=== PATIENT | female | born 1970 | race Caucasian/White ===

== ENCOUNTER 2017-10-21 18:51 | Emergency (ER) | payer BC ==
[2017-10-21 18:59] VITALS: TEMP 97.9
[2017-10-21] MEDS ORDERED: SODIUM CHLORIDE 0.9% 1,000 ML IV STA (19:59)
[2017-10-21] MEDS ORDERED: HYDROmorphone 0.5 MG/0.5 ML SYRINGE IVP STA (19:59)
[2017-10-21] MEDS ORDERED: KETOROLAC 30 MG/ML 1 ML VIAL IVP STA (19:59)
[2017-10-21] MEDS ORDERED: ONDANSETRON 4 MG/2 ML VIAL IVP STA (19:59)
[2017-10-21 20:49] LABS: Basophils # (A) 0.1 k/uL (0-0.2); Basophils % (A) 1 %; Eosinophils # (A) 0.3 k/uL (0-0.7); Eosinophils % (A) 2 %; HCT 43.7 % (34.0-46.0); HGB 14.3 gm/dL (11.4-16.0); Lymphocytes # (A) 2.4 k/uL (1.0-4.8); Lymphocytes % (A) 22 %; MCH 29.1 pg (25.0-35.0); MCHC 32.7 g/dL (31.0-37.0); Mean Platelet Volume 6.7; Monocytes # (A) 0.5 k/uL (0-1.0); Monocytes % (A) 5 %; Neutrophils # (A) 7.8 k/uL (1.3-7.7); Neutrophils % (A) 69 %; Platelet Count 402 k/uL (150-450); RDW 12.9 % (11.5-15.5); WBC 11.3 k/uL (3.8-10.6)
[2017-10-21 20:51] LABS: Appearance,Urine Clear (Clear); Bilirubin,Urine Negative (Negative); Blood,Urine Negative (Negative); Color,Urine Colorless; Glucose,Urine (UA) Negative (Negative); Ketones,Urine Negative (Negative); Leukocyte Esterase,Urine Negative (Negative); Nitrite,Urine Negative (Negative); PH, Urine 6.5 (5.0-8.0); Protein,Urine Negative (Negative); Specific Gravity,Urine 1.004 (1.001-1.035); Urobilinogen,Urine <2.0 mg/dL (<2.0)
[2017-10-21 21:00] LABS: ALT 57 U/L (9-52); AST 25 U/L (14-36); Albumin 4.6 g/dL (3.5-5.0); Alkaline Phosphatase 62 U/L (38-126); Amylase 57 U/L (30-110); Anion Gap 13 mmol/L; Blood Urea Nitrogen 24 mg/dL (7-17); Calcium 10.1 mg/dL (8.4-10.2); Carbon Dioxide 26 mmol/L (22-30); Chloride 100 mmol/L (98-107); Glucose 104 mg/dL (74-99); Lipase 70 U/L (23-300); Sodium 139 mmol/L (137-145); Total Bilirubin 0.5 mg/dL (0.2-1.3); Total Protein 8.6 g/dL (6.3-8.2)
--- NOTE | 2017-10-21 21:06 | ED ---
Abdominal Pain HPI - General Chief Complaint: Abdominal Pain Stated Complaint: Abdominal pain Time Seen by Provider: 10/21/17 19:44 Source: patient, RN notes reviewed, old records reviewed Mode of arrival: ambulatory Limitations: no limitations - History of Present Illness Initial Comments: 47-year-old female with a 2 month history of intermittent right upper quadrant pain. She reports his been acutely worse over the past 3 days. She reports is generally sore. She denies any fever or chills. She states she's had a couple episodes of vomiting last week. Reports some diarrhea as well. Denies any other symptoms. Patient reports the pain is worse after eating. Specifically worse after eating a greasy meal. She reports family history of gallbladder disease. Surgical history includes appendectomy.Patient denies any recent fever , chills, shortness of breath, chest pain, back pain, abdominal pain, nausea vomiting, numbness or tingling, dysuria or hematuria, constipation or diarrhea, headaches or visual changes, or any other current symptoms - Related Data Home Medications Medication Instructions Recorded Confirmed Hydrochlorothiazide [Hydrodiuril] 50 mg PO DAILY 10/21/17 10/21/17 Levothyroxine Sodium [Synthroid] 88 mcg PO DAILY 10/21/17 10/21/17 Lisinopril [Zestril] 40 mg PO DAILY 10/21/17 10/21/17 Previous Rx's Medication Instructions Recorded Famotidine [Pepcid] 20 mg PO HS #20 tablet 10/21/17 HYDROcodone/APAP 5-325MG [[place] 1 tab PO Q6HR PRN #12 tab 10/21/17 5-325] Ondansetron Odt [Zofran Odt] 4 mg PO Q8HR PRN #12 tab 10/21/17 Allergies Allergy/AdvReac Type Severity Reaction Status Date / Time Penicillins Allergy Rash/Hives Verified 10/21/17 20:05 Sulfa (Sulfonamide Allergy Rash/Hives Verified 10/21/17 20:05 Antibiotics) Review of Systems ROS Statement: Those systems with pertinent positive or pertinent negative responses have been documented in the HPI. ROS Other: All systems not noted in ROS Statement are negative. Past Medical History Past Medical History: Hypertension, Thyroid Disorder History of Any Multi-Drug Resistant Organisms: None Reported Past Surgical History: Section, Hysterectomy Past Psychological History: No Psychological Hx Reported Smoking Status: Never smoker Past Alcohol Use History: None Reported Past Drug Use History: None Reported General Exam - General Exam Comments Initial Comments: 47-year-old female. No distress. Limitations: no limitations General appearance: alert, in no apparent distress Head exam: Present: atraumatic, normocephalic, normal inspection Eye exam: Present: normal appearance, PERRL, EOMI. Absent: scleral icterus, conjunctival injection, periorbital swelling ENT exam: Present: normal exam, mucous membranes moist Neck exam: Present: normal inspection. Absent: tenderness, meningismus, lymphadenopathy Respiratory exam: Present: normal lung sounds bilaterally. Absent: respiratory distress, wheezes, rales, rhonchi, stridor Cardiovascular Exam: Present: regular rate, normal rhythm, normal heart sounds. Absent: systolic murmur, diastolic murmur, rubs, gallop, clicks GI/Abdominal exam: Present: soft, tenderness (Final right upper quadrant tenderness. No rebound or guarding.), normal bowel sounds. Absent: distended, guarding, rebound, rigid Extremities exam: Present: normal inspection, full ROM, normal capillary refill. Absent: tenderness, pedal edema, joint swelling, calf tenderness Back exam: Present: normal inspection Neurological exam: Present: alert, oriented X3, CN II-XII intact Psychiatric exam: Present: normal affect, normal mood Skin exam: Present: warm, dry, intact, normal color. Absent: rash Course Vital Signs 10/21/17 10/21/17 18:56 22:21 Temperature 97.9 F 97.9 F Pulse Rate 118 H 100 Respiratory 16 18 Rate Blood Pressure 125/67 112/65 O2 Sat by Pulse 99 99 Oximetry Medical Decision Making - Medical Decision Making 47-year-old female with a 2 month history of intermittent right upper quadrant pain. She reports his been acutely worse over the past 3 days. She reports is generally sore. She denies any fever or chills. She states she's had a couple episodes of vomiting last week. Patient does have some tenderness to the right upper quadrant. No rebound tenderness or guarding. Patient was given IV fluids labwork obtained. Mildly elevated reports of, 1.3. G think this could be reactive to do vomiting. Liver enzymes are within normal rubs. Urinalysis shows no infection. I did do a right upper quadrant ultrasound. There is no evidence of cholelithiasis or choledocholithiasis. Patient informed of these. I discussed that other etiologies for pain including peptic ulcer or biliary colic. Discussed following up with a surgeon for further testing including a HIDA scan. Discussed watching her diet, and having clear liquids for the next few days. I discussed with the patient on Pepcid for possible peptic ulcer as well as monitor her diet to help her biliary colic. Patient be discharged with a short course of pain medication and referral to surgeon. - Lab Data Result diagrams: 10/21/17 20:36 10/21/17 20:36 Lab Results 10/21/17 10/21/17 10/21/17 Range/Units 20:36 20:36 20:36 WBC 11.3 H (3.8-10.6) k/uL RBC 4.90 (3.80-5.40) m/uL Hgb 14.3 (11.4-16.0) gm/dL Hct 43.7 (34.0-46.0) % MCV 89.0 (80.0-100.0) fL MCH 29.1 (25.0-35.0) pg MCHC 32.7 (31.0-37.0) g/dL RDW 12.9 (11.5-15.5) % Plt Count 402 (150-450) k/uL Neutrophils % 69 % Lymphocytes % 22 % Monocytes % 5 % Eosinophils % 2 % Basophils % 1 % Neutrophils # 7.8 H (1.3-7.7) k/uL Lymphocytes # 2.4 (1.0-4.8) k/uL Monocytes # 0.5 (0-1.0) k/uL Eosinophils # 0.3 (0-0.7) k/uL Basophils # 0.1 (0-0.2) k/uL Sodium 139 (137-145) mmol/L Potassium 4.0 (3.5-5.1) mmol/L Chloride 100 (98-107) mmol/L Carbon Dioxide 26 (22-30) mmol/L Anion Gap 13 mmol/L BUN 24 H (7-17) mg/dL Creatinine 0.80 (0.52-1.04) mg/dL Est GFR (MDRD) Af Amer >60 (>60 ml/min/1.73 sqM) Est GFR (MDRD) Non-Af >60 (>60 ml/min/1.73 sqM) Glucose 104 H (74-99) mg/dL Plasma Lactic Acid Nick 1.0 (0.7-2.0) mmol/L Calcium 10.1 (8.4-10.2) mg/dL Total Bilirubin 0.5 (0.2-1.3) mg/dL AST 25 (14-36) U/L ALT 57 H (9-52) U/L Alkaline Phosphatase 62 (38-126) U/L Total Protein 8.6 H (6.3-8.2) g/dL Albumin 4.6 (3.5-5.0) g/dL Amylase 57 (30-110) U/L Lipase 70 (23-300) U/L Urine Color Urine Appearance (Clear) Urine pH (5.0-8.0) Ur Specific Phillips (1.001-1.035) Urine Protein (Negative) Urine Glucose (UA) (Negative) Urine Ketones (Negative) Urine Blood (Negative) Urine Nitrite (Negative) Urine Bilirubin (Negative) Urine Urobilinogen (<2.0) mg/dL Ur Leukocyte Esterase (Negative) 10/21/17 Range/Units 20:36 WBC (3.8-10.6) k/uL RBC (3.80-5.40) m/uL Hgb (11.4-16.0) gm/dL Hct (34.0-46.0) % MCV (80.0-100.0) fL MCH (25.0-35.0) pg MCHC (31.0-37.0) g/dL RDW (11.5-15.5) % Plt Count (150-450) k/uL Neutrophils % % Lymphocytes % % Monocytes % % Eosinophils % % Basophils % % Neutrophils # (1.3-7.7) k/uL Lymphocytes # (1.0-4.8) k/uL Monocytes # (0-1.0) k/uL Eosinophils # (0-0.7) k/uL Basophils # (0-0.2) k/uL Sodium (137-145) mmol/L Potassium (3.5-5.1) mmol/L Chloride (98-107) mmol/L Carbon Dioxide (22-30) mmol/L Anion Gap mmol/L BUN (7-17) mg/dL Creatinine (0.52-1.04) mg/dL Est GFR (MDRD) Af Amer (>60 ml/min/1.73 sqM) Est GFR (MDRD) Non-Af (>60 ml/min/1.73 sqM) Glucose (74-99) mg/dL Plasma Lactic Acid Nick (0.7-2.0) mmol/L Calcium (8.4-10.2) mg/dL Total Bilirubin (0.2-1.3) mg/dL AST (14-36) U/L ALT (9-52) U/L Alkaline Phosphatase (38-126) U/L Total Protein (6.3-8.2) g/dL Albumin (3.5-5.0) g/dL Amylase (30-110) U/L Lipase (23-300) U/L Urine Color Colorless Urine Appearance Clear (Clear) Urine pH 6.5 (5.0-8.0) Ur Specific [place] 1.004 (1.001-1.035) Urine Protein Negative (Negative) Urine Glucose (UA) Negative (Negative) Urine Ketones Negative (Negative) Urine Blood Negative (Negative) Urine Nitrite Negative (Negative) Urine Bilirubin Negative (Negative) Urine Urobilinogen <2.0 (<2.0) mg/dL Ur Leukocyte Esterase Negative (Negative) - Radiology Data Radiology results: report reviewed Patient's gallbladder is negative right upper quadrant abdominal sonogram. No gallstones or dilated ducts. Disposition Clinical Impression: RUQ pain Disposition: HOME SELF-CARE Condition: Good Instructions: Biliary Colic (ED), Abdominal Pain (ED) Additional Instructions: Patient denies follow-up with on-call surgeon. Return to the emergency department if any alarming signs or symptoms occur. Prescriptions: Famotidine [Pepcid] 20 mg PO HS #20 tablet HYDROcodone/APAP 5-325MG [[place] 5-325] 1 tab PO Q6HR PRN #12 tab PRN Reason: Pain Ondansetron Odt [Zofran Odt] 4 mg PO Q8HR PRN #12 tab PRN Reason: Nausea Referrals: Audrey Boykin MD [Primary Care Provider] - 1-2 days James Perez MD [Medical Doctor] - 1-2 days Time of Disposition: 22:06
--- NOTE | 2017-10-21 21:53 | US ---
EXAMINATION TYPE: US gallbladder DATE OF EXAM: 10/21/2017 COMPARISON: NONE CLINICAL HISTORY: Pain. RUQ pain and nausea exam limitations due to body habitus. EXAM MEASUREMENTS: Liver Length: 19.4 cm Gallbladder Wall: 0.29 cm CBD: 0.58 cm Right Kidney: 9.9 x 4.3 x 4.9 cm Pancreas: Tail obscured by overlying bowel gas Liver: Increased attenuation, decreased visualization of vessels suggestive of fatty infiltrate Gallbladder: No stones seen Evidence for sonographic Garrido's sign: No CBD: wnl Right Kidney: No hydronephrosis or masses seen IMPRESSION: Negative right upper quadrant abdominal sonogram. No gallstones or dilated ducts.
[2017-10-21 22:26] VITALS: BP 112/65; PULSE 100; RESP 18
== END 2017-10-21 22:22 | disposition home or self-care (01) ==
LOC: EC 18:51
DX: R10.11 Right upper quadrant pain (principal); R11.10 Vomiting, unspecified; R19.7 Diarrhea, unspecified; I10 Essential (primary) hypertension; E07.9 Disorder of thyroid, unspecified; Z90.49 Acquired absence of other specified parts of digestive tract; Z79.899 Other long term (current) drug therapy
CPT/HCPCS: 36415; 80053; 82150; 83605; 83690; 85025; 81003; 87040; 76705; 99285; 96374; 96375 ×2; 96361; J2405; J1885; J1170

== ENCOUNTER → 2017-11-05 | Outpatient (CLI) | payer BC ==
--- NOTE | 2017-11-05 09:32 | NM ---
EXAMINATION TYPE: NM hepatobiliary w EF DATE OF EXAM: 11/05/2017 COMPARISON: Ultrasound of the gallbladder dated 10/21/2017 HISTORY: Right upper quadrant pain TECHNIQUE: After the intravenous administration of 5.2 mCi Tc 99m Mebrofenin hepatobiliary scintigrap hy is performed. Immediate images post injection. FINDINGS: There is satisfactory initial accumulation of tracer by the liver. The gallbladder is visualized wit hin 20 minutes. The small bowel activity is noted within 16 minutes. At one hour 8 ounces of oral e nsure plus is given to mimic CCK and gallbladder ejection fraction is calculated at 69 %, in the norm al range. Therefore there is no scintigraphic evidence of cystic or common bile duct obstruction to suggest acute cholecystitis or gallbladder dyskinesia. IMPRESSION: No scintigraphic evidence of acute cholecystitis, chronic cholecystitis, or biliary dyski nesia.
== END | disposition home or self-care (01) ==
LOC: RADNMMAIN 06:47
PROVIDERS: ATTEND Family Medicine
DX: R10.11 Right upper quadrant pain (principal)
CPT/HCPCS: 78226; A9537

== ENCOUNTER 2017-12-27 11:12 | Day surgery (SDC) | payer BC ==
[2017-12-23 11:02] VITALS: BMI 35.4
[~2017-12-27 11:12] MED LIST: LACTATED RINGERS 1,000 ML IV SCH
[2017-12-27 12:20] VITALS: RESP 16; TEMP 97.9
[2017-12-27] MEDS ORDERED: PROPOFOL 10 MG/ML 20 ML VIAL IV ONE (13:05)
--- NOTE | 2017-12-27 13:45 | P.PCN ---
Date of Procedure: 12/27/17 Procedure(s) Performed: Procedure: 1. Esophagogastroduodenoscopy and biopsy. 2. Total colonoscopy. Preoperative diagnosis: Heartburn and nausea and abdominal pain. Postoperative diagnoses: 1. Small sliding hiatal hernia with no obvious esophagitis or complicated reflux disease. 2. Mild antral gastritis. 3. Colon and terminal ileum within normal limits. Preparation: HalfLytely prep. Sedation: Was provided by anesthesia. Brief clinical history: The patient is a 47-year-old female who is scheduled for this evaluation for the above reasons. The patient had chronic reflux symptoms and had no prior upper endoscopy. She has nausea and abdominal pain but no overt bleeding or anemia. No family history of colon cancer. This would be her first upper and lower endoscopies. Procedure: With the patient on her left lateral decubitus position and after informed consent and adequate sedation, I passed the Olympus-GIF 160 video upper endoscope through the cricopharyngeus down the esophagus. GE junction was around 34 cm from the incisors and there was a small sliding hiatal hernia. The esophagus did not show any evidence of esophagitis or complicated reflux disease. The endoscope was then advanced into the stomach which was insufflated with air and inspected in detail including the retroflex view in the cardia. There was some mottling and erythema in the antrum but no ulcers or erosions. Pyloric channel, duodenal bulb, post bulbar area and descending duodenum appeared within normal limits. With her history, I obtained biopsies from the duodenum, antrum and esophagus then the endoscope was withdrawn and I proceeded with the colonoscopy. The perianal area was inspected and it did not show any fissures or fistulas. There were no masses felt on digital rectal examination. The Olympus CFQ 160L endoscope was then inserted in the rectum in the usual fashion and advanced to the cecum. I intubated the ileocecal valve and examined the terminal ileum. The mucosa appeared healthy. No polyps or tumors were seen or any obvious diverticular disease or other pathology. I retroflexed the endoscope in the rectum before the endoscope was withdrawn. The patient tolerated the procedure well. Plan: The patient was reassured. She has a follow-up appointment in our office next month. She will follow up with you as planned and I recommended repeat colonoscopy in 10 years.
[2017-12-27 14:20] VITALS: BP 110/76; PULSE 90
== END 2017-12-27 14:54 | disposition home or self-care (01) ==
LOC: ORWHC2ENDO 11:12
DX: K21.9 Gastro-esophageal reflux disease without esophagitis (principal); K44.9 Diaphragmatic hernia without obstruction or gangrene; R10.9 Unspecified abdominal pain; E78.5 Hyperlipidemia, unspecified; E07.9 Disorder of thyroid, unspecified; I10 Essential (primary) hypertension; Z79.899 Other long term (current) drug therapy; Z88.0 Allergy status to penicillin; Z88.2 Allergy status to sulfonamides
CPT/HCPCS: 88305; 45378; 43239; J2704

== ENCOUNTER 2019-01-16 13:30 | Emergency (ER) | payer BC, OTHER ==
--- NOTE | 2019-01-16 13:56 | ED ---
SOB HPI - General Chief Complaint: Shortness of Breath Stated Complaint: dizzy, SOB Time Seen by Provider: 01/16/19 13:38 Source: patient, RN notes reviewed Mode of arrival: ambulatory Limitations: no limitations - History of Present Illness Initial Comments: This a 49-year-old female presents emergency Department chief complaint shortness of breath. Patient states that she's had worsening symptoms over the weekend and especially today. She had intermittent shortness of breath until today to been continuous. She does not she's short of breath if she walks on the whole at her work. Patient states that she has some chest heaviness with no chest pain. Patient does admit that she had a lingering cough after influenza a month ago. Patient does see PCP who told her took several weeks to clear up. Patient had no recurrent fever, chills, night sweats. Patient has a history of hypothyroidism, hypertension. Patient denies any new medications. Denies nasal congestion, sore throat. Denies any leg swelling, calf pain or any recent long distance traveling. - Related Data Home Medications Medication Instructions Recorded Confirmed Hydrochlorothiazide [Hydrodiuril] 50 mg PO DAILY 10/21/17 01/16/19 Lisinopril [Zestril] 40 mg PO DAILY 10/21/17 01/16/19 Levothyroxine Sodium [Synthroid] 100 mcg PO DAILY 01/16/19 01/16/19 Previous Rx's Medication Instructions Recorded Azithromycin [Zithromax Z-pack] 0 mg PO DIRECTED #1 pack 01/16/19 Allergies Allergy/AdvReac Type Severity Reaction Status Date / Time Penicillins Allergy Rash/Hives Verified 01/16/19 13:47 Sulfa (Sulfonamide Allergy Rash/Hives Verified 01/16/19 13:47 Antibiotics) Review of Systems ROS Statement: Those systems with pertinent positive or pertinent negative responses have been documented in the HPI. ROS Other: All systems not noted in ROS Statement are negative. Past Medical History Past Medical History: GERD/Reflux, Hypertension, Thyroid Disorder Additional Past Medical History / Comment(s): interstitial cystitis, intermittent abd. pain, gas, bloating, change in bowel habits since History of Any Multi-Drug Resistant Organisms: None Reported Past Surgical History: Section, Hysterectomy Additional Past Surgical History / Comment(s): C/S x4 Past Anesthesia/Blood Transfusion Reactions: Motion Sickness, Postoperative Nausea & Vomiting (PONV) Past Psychological History: No Psychological Hx Reported Smoking Status: Never smoker Past Alcohol Use History: None Reported Past Drug Use History: None Reported - Past Family History Mother Family Medical History: No Reported History General Exam Limitations: no limitations General appearance: alert, in no apparent distress Head exam: Present: atraumatic, normocephalic, normal inspection Eye exam: Present: normal appearance, PERRL, EOMI. Absent: scleral icterus, conjunctival injection, periorbital swelling ENT exam: Present: normal exam, normal oropharynx, mucous membranes moist Neck exam: Present: normal inspection, full ROM. Absent: tenderness, meningismus, lymphadenopathy Respiratory exam: Present: normal lung sounds bilaterally. Absent: respiratory distress, wheezes, rales, rhonchi, stridor Cardiovascular Exam: Present: normal rhythm, tachycardia, normal heart sounds. Absent: systolic murmur, diastolic murmur, rubs, gallop, clicks Back exam: Absent: CVA tenderness (R), CVA tenderness (L) Skin exam: Present: warm, dry, intact, normal color. Absent: rash Course Vital Signs 01/16/19 01/16/19 01/16/19 13:31 14:40 15:00 Temperature 98.7 F Pulse Rate 106 H 104 H Respiratory 18 19 18 Rate Blood Pressure 129/82 111/75 111/75 O2 Sat by Pulse 95 96 Oximetry Medical Decision Making - Medical Decision Making 49-year-old female presented emergency from for any shortness of breath exertional. CT, x-ray, lab work were obtained. Patient has areas concerning lymph node enlargement, possible underlying atypical infection versus sarcoidosis. Patient updated on CT results. Follow-up with on-call pulmonology. Patient we given Rocephin, azithromycin. Return parameters were discussed. - Lab Data Result diagrams: 01/16/19 13:57 01/16/19 13:57 Lab Results 01/16/19 01/16/19 01/16/19 Range/Units 13:57 13:57 13:57 WBC 4.5 (3.8-10.6) k/uL RBC 4.27 (3.80-5.40) m/uL Hgb 12.3 (11.4-16.0) gm/dL Hct 37.1 (34.0-46.0) % MCV 87.0 (80.0-100.0) fL MCH 28.9 (25.0-35.0) pg MCHC 33.2 (31.0-37.0) g/dL RDW 13.4 (11.5-15.5) % Plt Count 267 (150-450) k/uL Neutrophils % 58 % Lymphocytes % 25 % Monocytes % 9 % Eosinophils % 4 % Basophils % 1 % Neutrophils # 2.6 (1.3-7.7) k/uL Lymphocytes # 1.1 (1.0-4.8) k/uL Monocytes # 0.4 (0-1.0) k/uL Eosinophils # 0.2 (0-0.7) k/uL Basophils # 0.0 (0-0.2) k/uL PT 10.1 (9.0-12.0) sec INR 0.9 (<1.2) APTT 25.2 (22.0-30.0) sec D-Dimer 0.60 H (<0.60) mg/L FEU Sodium 137 (137-145) mmol/L Potassium 3.9 (3.5-5.1) mmol/L Chloride 104 (98-107) mmol/L Carbon Dioxide 24 (22-30) mmol/L Anion Gap 9 mmol/L BUN 15 (7-17) mg/dL Creatinine 0.62 (0.52-1.04) mg/dL Est GFR (CKD-EPI)AfAm >90 (>60 ml/min/1.73 sqM) Est GFR (CKD-EPI)NonAf >90 (>60 ml/min/1.73 sqM) Glucose 94 (74-99) mg/dL Calcium 9.5 (8.4-10.2) mg/dL Magnesium 1.7 (1.6-2.3) mg/dL Total Bilirubin 0.4 (0.2-1.3) mg/dL AST 26 (14-36) U/L ALT 49 (9-52) U/L Alkaline Phosphatase 56 (38-126) U/L Troponin I (0.000-0.034) ng/mL NT-Pro-B Natriuret Pep pg/mL Total Protein 7.4 (6.3-8.2) g/dL Albumin 4.1 (3.5-5.0) g/dL 04/15/19 04/15/19 Range/Units 13:57 13:57 WBC (3.8-10.6) k/uL RBC (3.80-5.40) m/uL Hgb (11.4-16.0) gm/dL Hct (34.0-46.0) % MCV (80.0-100.0) fL MCH (25.0-35.0) pg MCHC (31.0-37.0) g/dL RDW (11.5-15.5) % Plt Count (150-450) k/uL Neutrophils % % Lymphocytes % % Monocytes % % Eosinophils % % Basophils % % Neutrophils # (1.3-7.7) k/uL Lymphocytes # (1.0-4.8) k/uL Monocytes # (0-1.0) k/uL Eosinophils # (0-0.7) k/uL Basophils # (0-0.2) k/uL PT (9.0-12.0) sec INR (<1.2) APTT (22.0-30.0) sec D-Dimer (<0.60) mg/L FEU Sodium (137-145) mmol/L Potassium (3.5-5.1) mmol/L Chloride (98-107) mmol/L Carbon Dioxide (22-30) mmol/L Anion Gap mmol/L BUN (7-17) mg/dL Creatinine (0.52-1.04) mg/dL Est GFR (CKD-EPI)AfAm (>60 ml/min/1.73 sqM) Est GFR (CKD-EPI)NonAf (>60 ml/min/1.73 sqM) Glucose (74-99) mg/dL Calcium (8.4-10.2) mg/dL Magnesium (1.6-2.3) mg/dL Total Bilirubin (0.2-1.3) mg/dL AST (14-36) U/L ALT (9-52) U/L Alkaline Phosphatase (38-126) U/L Troponin I <0.012 (0.000-0.034) ng/mL NT-Pro-B Natriuret Pep 109 pg/mL Total Protein (6.3-8.2) g/dL Albumin (3.5-5.0) g/dL - EKG Data EKG Comments: EKG performed at 13:49 sinus tachycardia with a rate of 107 MI 136 QRS 80 QT/QTC 348/464 Disposition Clinical Impression: Atypical pneumonia, Hilar lymphadenopathy Disposition: HOME SELF-CARE Condition: Stable Instructions (If sedation given, give patient instructions): Bacterial Pneumonia (ED) Additional Instructions: Please return to the Emergency Department if symptoms worsen or any other concerns. Prescriptions: Azithromycin [Zithromax Z-pack] 0 mg PO DIRECTED #1 pack Is patient prescribed a controlled substance at d/c from ED?: No Referrals: Raghav Rain Jr, [Primary Care Provider] - 1-2 days Time of Disposition: 15:41
[2019-01-16 14:10] LABS: Basophils % (A) 1 %; Eosinophils # (A) 0.2 k/uL (0-0.7); Eosinophils % (A) 4 %; HCT 37.1 % (34.0-46.0); HGB 12.3 gm/dL (11.4-16.0); Lymphocytes # (A) 1.1 k/uL (1.0-4.8); Lymphocytes % (A) 25 %; MCH 28.9 pg (25.0-35.0); MCHC 33.2 g/dL (31.0-37.0); Mean Platelet Volume 6.8; Monocytes # (A) 0.4 k/uL (0-1.0); Monocytes % (A) 9 %; Neutrophils # (A) 2.6 k/uL (1.3-7.7); Neutrophils % (A) 58 %; Platelet Count 267 k/uL (150-450); RBC 4.27 m/uL (3.80-5.40); RDW 13.4 % (11.5-15.5); WBC 4.5 k/uL (3.8-10.6)
--- NOTE | 2019-01-16 14:11 | XR ---
EXAMINATION TYPE: XR chest 2V DATE OF EXAM: 01/16/2019 COMPARISON: None HISTORY: 49-year-old female cough and difficulty breathing TECHNIQUE: PA and lateral views FINDINGS: Low lung volumes and cardiovascular markings. Peribronchial cuffing is suggested. Heart normal size. Some patchy lower lung densities likely atelectasis. Otherwise, no hung consolidation or pleural eff usion. IMPRESSION: Hypoventilatory changes. There is some interstitial and peribronchial density that could represent br onchitis or asthma. Atypical pneumonias are also possible.
[2019-01-16 14:22] LABS: ALT 49 U/L (9-52); AST 26 U/L (14-36); Albumin 4.1 g/dL (3.5-5.0); Alkaline Phosphatase 56 U/L (38-126); Anion Gap 9 mmol/L; Blood Urea Nitrogen 15 mg/dL (7-17); Calcium 9.5 mg/dL (8.4-10.2); Carbon Dioxide 24 mmol/L (22-30); Chloride 104 mmol/L (98-107); Glucose 94 mg/dL (74-99); Magnesium 1.7 mg/dL (1.6-2.3); Potassium 3.9 mmol/L (3.5-5.1); Sodium 137 mmol/L (137-145); Total Bilirubin 0.4 mg/dL (0.2-1.3); Total Protein 7.4 g/dL (6.3-8.2)
[2019-01-16 14:23] LABS: INR 0.9 (<1.2); Partial Thromboplastin Time 25.2 sec (22.0-30.0); Prothrombin Time 10.1 sec (9.0-12.0)
[2019-01-16 14:51] LABS: D-Dimer 0.6 mg/L FEU (<0.60)
--- NOTE | 2019-01-16 15:21 | CT ---
EXAMINATION TYPE: CT chest angio for PE DATE OF EXAM: 01/16/2019 COMPARISON: Chest x-ray earlier today. HISTORY: Chest pressure and cough CT DLP: 581.7 mGycm. Automated Exposure Control for Dose Reduction was Utilized. CONTRAST: CTA scan of the thorax is performed with IV Contrast, patient injected with 100 mL of Isovue 370, pul monary embolism protocol. MIP Images are created on CT scanner and reviewed. FINDINGS: LUNGS: Low lung volumes are present. Some central ground glass opacity is seen bilaterally there is a dditional nodularity or nodular consolidation in the right midlung near axial image 55 over a linear distribution. No pleural effusion or pneumothorax is seen. Slight respiratory motion artifact degrada tion. MEDIASTINUM: There is satisfactory enhancement of the pulmonary artery and its branches, there is no CT evidence for pulmonary embolism. There are prominent enlarged bilateral hilar lymph nodes. Heart size is upper limits of normal. No pericardial effusion is seen. OTHER: Mild to moderate multilevel spurring in the thoracic spine is present. IMPRESSION: 1. Correlate for CHF exacerbation as there is mild central vascular congestion with heart size upper limits of normal. 2. Nodules or nodular consolidation in a linear distribution right midlung could reflect atypical inf ectious process, correlate clinically. 3. Bilateral hilar adenopathy, differential includes granulomatous disease and sarcoidosis. Other rodrigo ologies not excluded. Correlate clinically to help determine need for follow-up.
[2019-01-16 15:32] VITALS: RESP 18
[2019-01-16] MEDS ORDERED: cefTRIAXone IN SWFI 1,000 MG/10 ML SYRINGE IVP STA (15:41)
[2019-01-16 15:50] VITALS: BP 119/85; PULSE 100; TEMP 97.7
== END 2019-01-16 16:03 | disposition home or self-care (01) ==
LOC: EC 13:30
DX: J18.9 Pneumonia, unspecified organism (principal); R59.0 Localized enlarged lymph nodes; R00.0 Tachycardia, unspecified; I10 Essential (primary) hypertension; E03.9 Hypothyroidism, unspecified; Z88.0 Allergy status to penicillin; Z88.2 Allergy status to sulfonamides; Z79.890 Hormone replacement therapy; Z79.899 Other long term (current) drug therapy; Z86.19 Personal history of other infectious and parasitic diseases
CPT/HCPCS: 36415; 93005; 85379; 83880; 80053; 83735; 84484; 85025; 85610; 85730; 71046; 71275; 99285; 96374; J0696; Q9967

== ENCOUNTER → 2020-06-07 | Outpatient (CLI) | payer OTHER ==
--- NOTE | 2020-06-10 21:25 | CT ---
EXAMINATION TYPE: CT chest w con DATE OF EXAM: 06/07/2020 COMPARISON: CTA chest 01/16/2019. HISTORY: Difficulty breathing and joint pain. CT DLP: 552.2 mGycm Automated exposure control for dose reduction was used. CONTRAST: CT scan of the chest is performed with IV Contrast, patient injected with 100ml mL of Isovue 300. FINDINGS: LUNGS: There is interstitial prominence likely reflective of pulmonary congestion. No concerning pare nchymal mass or nodule identified. No pleural effusion. No pneumothorax. The tracheobronchial tree is patent. MEDIASTINUM/SOFT TISSUES: No axillary, hilar, or mediastinal lymphadenopathy greater than 1 cm. Cardi ac size is upper limits of normal. No pericardial effusion. No thoracic aortic aneurysm. UPPER ABDOMEN: No adrenal nodule. Small hiatal hernia. OSSEOUS: Degenerative changes of the spine. IMPRESSION: 1. Hazy mildly increased interstitial markings may represent pulmonary edema. Heart size is upper li mits of normal. Correlate for CHF. 2. No focal opacities or pleural effusion.
== END | disposition home or self-care (01) ==
LOC: RADCTMAIN 15:26
PROVIDERS: ATTEND Internal Medicine Critical Care Medicine
DX: D86.0 Sarcoidosis of lung (principal); Z88.0 Allergy status to penicillin; Z88.2 Allergy status to sulfonamides
CPT/HCPCS: 71260; Q9967